=== PATIENT | female | born 1945 | race Caucasian/White ===

== ENCOUNTER 2019-04-24 15:00 | Emergency (ER) | payer OTHER ==
[2019-04-24 15:07] VITALS: BP 130/61; PULSE 68; TEMP 98.5; BMI 22.3
--- NOTE | 2019-04-24 15:15 | PDOC ---
History of Present Illness - General Chief Complaint: Injury Stated Complaint: RT LOWER LEG PAIN Time Seen by Provider: 04/24/19 15:08 History Source: Patient Exam Limitations: No Limitations - History of Present Illness Initial Comments: 04/24/19 15:11 74 y/o female about 1 hr ago injured right leg when she missed a step. No ankle pain. Took two Advil and iced area. Able to walk on it but heard a snapping noise. No calf pain, fever or chills. Noticed swelling to area. Timing/Duration: 1 hour Severity: mild Past History - Past Medical History Allergies/Adverse Reactions: Allergies Allergy/AdvReac Type Severity Reaction Status Date / Time No Known Allergies Allergy Verified 04/24/19 15:04 Home Medications: Ambulatory Orders NK [No Known Home Medication] 04/24/19 COPD: No Hypercholesterolemia: Yes Thyroid Disease: Yes - Suicide/Smoking/Psychosocial Hx Smoking History: Never smoked Have you smoked in the past 12 months: No Information on smoking cessation initiated: No Hx Alcohol Use: No Review of Systems - Review of Systems Able to Perform ROS?: Yes Is the patient limited Yakut proficient: No Constitutional: No: Chills, Fever Respiratory: No: Cough, Shortness of Breath Cardiac (ROS): No: Chest Pain Musculoskeletal: Yes: Muscle Pain. No: Joint Pain, Joint Swelling All Other Systems: Reviewed and Negative *Physical Exam - Vital Signs Last Vital Signs Temp Pulse Resp BP Pulse Ox 98.5 F 68 18 130/61 96 04/24/19 15:00 04/24/19 15:00 04/24/19 15:00 04/24/19 15:00 04/24/19 15:00 - Physical Exam General Appearance: Yes: Nourished, Appropriately Dressed. No: Apparent Distress HEENT: positive: EOMI, CIERA, Normal ENT Inspection, Normal Voice Neck: positive: Trachea midline, Normal Thyroid, Supple. negative: Tender, Rigid Respiratory/Chest: positive: Lungs Clear, Normal Breath Sounds. negative: Chest Tender, Respiratory Distress Cardiovascular: positive: Regular Rhythm, Regular Rate, S1, S2. negative: Edema , JVD, Murmur Vascular Pulses: Femoral (R): 4+, Femoral (L): 4+, Carotid (R): 4+, Carotid (L) : 4+, Dorsalis-Pedis (R): 4+, Doralis-Pedis (L): 4+ Gastrointestinal/Abdominal: positive: Normal Bowel Sounds, Flat, Soft. negative : Tender Lymphatic: negative: Adenopathy, Tenderness, Other Musculoskeletal: positive: Normal Inspection. negative: CVA Tenderness Extremity: positive: Normal Capillary Refill, Normal Range of Motion. negative : Normal Inspection (right lower extremity anterior/lateral aspect with mild swelling and tenderness, no ecchymosis or erythema, full ROM, no calf tenderness b/l), Tender, Calf Tenderness Integumentary: positive: Normal Color, Dry, Warm, Swelling. 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 NML intact, Fully Oriented, Alert, Normal Mood/ Affect, Normal Response, Motor Strength 5/5 (strength 5+/5 b/l in UE and LE, no focal deficits noted) ED Treatment Course - ADDITIONAL ORDERS Additional order review: 04/24/19 16:28 X-ray right tib/fib: comminuted mid shaft fibular fracture, non displaced Spoke with Ortho PA [facility], agrees with plan, weight bearing as tolerated with cane and air cast Will see in office this weak Pt is in agreement with plan - RADIOLOGY Radiology Studies Ordered: Category Date Time Status LEG TIB/FIB-RIGHT [RAD] Stat Radiology 04/24/19 15:11 Ordered *DC/Admit/Observation/Transfer Diagnosis at time of Disposition: Fibula fracture Qualifiers: Encounter type: initial encounter Fibula location: shaft Fracture type: closed Fracture morphology: comminuted Fracture alignment: nondisplaced Laterality: right Qualified Code(s): S82.454A - Nondisplaced comminuted fracture of shaft of right fibula, initial encounter for closed fracture - Discharge Dispostion Disposition: HOME Condition at time of disposition: Stable Decision to Admit order: No - Referrals Referrals: Herbert Raymundo MD [Staff Physician] - - Patient Instructions Printed Discharge Instructions: Fibula Shaft Fracture Additional Instructions: Ice, Motrin, rest, elevated Weight bearing as tolerated with cane Follow up with Orthopedics - Post Discharge Activity
== END 2019-04-24 16:45 | disposition home or self-care (01) ==
LOC: FER 15:00
DX: S82.454A Nondisplaced comminuted fracture of shaft of right fibula, initial encounter for closed fracture (principal); W18.09XA Striking against other object with subsequent fall, initial encounter; Y93.89 Activity, other specified; Y92.89 Other specified places as the place of occurrence of the external cause; I48.91 Unspecified atrial fibrillation; E07.9 Disorder of thyroid, unspecified; E78.00 Pure hypercholesterolemia, unspecified
CPT/HCPCS: 73590-TC-RT-FY; 99282-25

== ENCOUNTER 2021-02-03 16:51 | Emergency (ER) | payer OTHER ==
[2021-02-03 17:08] VITALS: BP 126/65; PULSE 63; TEMP 98.6; BMI 21.6
[2021-02-03] MEDS ORDERED: IBUPROFEN 600 MG TABLET (FP) PO ONE ×2 (17:18→17:39)
== END 2021-02-03 18:11 | disposition home or self-care (01) ==
LOC: FER 16:51
DX: S69.92XA Unspecified injury of left wrist, hand and finger(s), initial encounter (principal)
CPT/HCPCS: 73130-TC-LT-FY; 99283-25

== ENCOUNTER 2024-06-13 04:21 | Day surgery (SDC) | payer OTHER ==
[2024-06-05 14:30] VITALS: BMI 24.1
[2024-06-13 10:46] VITALS: TEMP 98.2
[2024-06-13 11:03] VITALS: RESP 16
[2024-06-13 11:04] VITALS: BP 128/54; PULSE 60
== END 2024-06-13 11:00 | disposition home or self-care (01) ==
LOC: JASU-ENDO 04:21
PROVIDERS: ATTEND Internal Medicine Gastroenterology
PROC: 0DBH8ZX Excision of Cecum, Via Natural or Artificial Opening Endoscopic, Diagnostic (ICD-10-PCS; principal; 2024-06-13 10:00)
DX: Z12.11 Encounter for screening for malignant neoplasm of colon (principal); K63.5 Polyp of colon; K64.8 Other hemorrhoids; K57.30 Diverticulosis of large intestine without perforation or abscess without bleeding; Z80.0 Family history of malignant neoplasm of digestive organs
CPT/HCPCS: 88305-TC